=== PATIENT | female | born 1970 | race Hispanic/Latino ===

== ENCOUNTER → 2021-10-20 | Outpatient (CLI) | payer BC ==
[~2021-10-20] MED LIST: GABAPENTIN300 MG PO; LEVOTHYROXINE75 MCG PO; MELOXICAM7.5 MG PO; METHOCARBAMOL500 MG PO; ULTRAM 50MG50 MG PO
== END ==
LOC: RAD 14:30
PROVIDERS: ATTEND Family Medicine
DX: M25.561 Pain in right knee (principal); G89.29 Other chronic pain; E78.5 Hyperlipidemia, unspecified

== ENCOUNTER → 2024-07-15 | Outpatient (REF) | payer BC | LOC: RAD 16:24 | PROVIDERS: ATTEND Family Medicine | DX: Z01.810 Encounter for preprocedural cardiovascular examination (principal) | CPT/HCPCS: 71046; 93005 ==